=== PATIENT | female | born 1950 | race Two or more races ===

== ENCOUNTER 2018-10-09 17:59 | Emergency (ER) | payer MEDICARE, BC ==
[2018-10-09 18:22] VITALS: BP 168/89
--- NOTE | 2018-10-09 18:22 | UC ---
Respiratory Complaint HPI - HPI Summary HPI Summary: 68 yo female presents with cough and wheezing for the last 3 days. She tells me that she has a long standing history of smoking and has COPD. She has multiple bronchodilators and steroid inhalers that she uses daily. She also has an albuterol nebulizer that she has used twice today. She says that she was recently hospitalized for SOB and COPD where her O2% was <88% (She says her baseline is around 92%) - she was then placed on 2L O2 for use at bedtime. She has increased shortness of breath, intermittently productive cough, and wheezing. She is still smoking daily. Currently she denies fever, chills, sinus symptoms, sore throat, chest pain. 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 Onset/Duration: Gradual Onset Severity Initially: Mild Severity Currently: Mild Pain Intensity: 1 Pain Scale Used: 0-10 Numeric Character: Cough: Nonproductive - Allergies/Home Medications Allergies/Adverse Reactions: Allergies Allergy/AdvReac Type Severity Reaction Status Date / Time No Known Allergies Allergy Verified 10/09/18 18:23 Home Medications: Home Medications ARIPiprazole TAB* [Abilify TAB*] 2.5 mg PO DAILY 10/09/18 [History Confirmed ] Fluticasone Propionate [Flovent Diskus] 50 mcg IH PRN 10/09/18 [History] Levalbuterol Tartrate [Levalbuterol Tartrate Hfa] 45 mcg IN PRN 10/09/18 [ History] Nitroglycerin TAB 0.4 MG* 0.4 mg SL Q5M PRN 10/09/18 [History Confirmed 10/09/18 ] predniSONE TAB* [Deltasone 20 MG TAB*] 20 mg PO BID 10/09/18 [History Confirmed 10/09/18] PMH/Surg Hx/FS Hx/Imm Hx Endocrine History: Dyslipidemia Respiratory History: COPD Psychological History: Anxiety, Depression - Surgical History Surgical History: Yes Surgery Procedure, Year, and Place: plate to lt ankle, divided uterus-corrected , , bunionectomy - Family History Known Family History: Positive: Respiratory Disease - Social History Occupation: Retired Lives: With Family Alcohol Use: Daily Alcohol Amount: 1 glass wine Substance Use Type: None Smoking Status (MU): Heavy Every Day Tobacco Smoker Type: Cigarettes Review of Systems All Other Systems Reviewed And Are Negative: Yes Constitutional: Positive: Negative Skin: Positive: Negative Eyes: Positive: Negative ENT: Positive: Negative Respiratory: Positive: Shortness Of Breath, Cough Cardiovascular: Positive: Negative Gastrointestinal: Positive: Negative Neurological: Positive: Negative Psychological: Positive: Negative Physical Exam - Summary Physical Exam Summary: GENERAL: NAD. WDWN. No pain distress. SKIN: No rashes, sores, lesions, or open wounds. HEENT: Head: AT/NC Eyes: Conjunctiva clear without inflammation or discharge. Ears: Hearing grossly normal. TMs intact, no bulging, erythema, or edema. Nose: Nasal mucosa pink and moist. NTTP maxillary and frontal sinus. Throat: Posterior oropharynx without exudates, erythema, or tonsillar enlargement. Uvula midline. NECK: Supple. Nontender. No lymphadenopathy. CHEST: Barrel chest noted. Moderate wheezing throughout. Rales PAULO and RLL. No accessory muscle use. Breathing comfortably and in no distress. CV: RRR. Without m/r/g. Pulses intact. Cap refill <2seconds NEURO: Alert. PSYCH: Age appropriate behavior. Triage Information Reviewed: Yes Vital Signs: Initial Vital Signs Temp 98.7 F 10/09/18 18:16 Pulse 63 10/09/18 18:16 Resp 18 10/09/18 18:16 BP 168/89 10/09/18 18:16 Pulse Ox 91 10/09/18 18:16 Vital Signs Reviewed: Yes UC Diagnostic Evaluation - Laboratory O2 Sat by Pulse Oximetry: 91 Re-Evaluation - Re-Evaluation First Eval Re-Evaluation Time: 19:11 Change: Improved Comment: Improved s/p duoneb. Respiratory Course/Dx - Course Course Of Treatment: CXR: No radiologist reading after 1800, therefore wet read by myself is negative for PNA. In the clinic pt was given a duoneb treatment with good improvement of her breathing. Will dc her with doxycycline, atrovent nebulizer solution to be used with her albuterol solution, and prednisone 60mg for 3 days then 40mg for 3 days then 20mg for 3 days. Advised to go to the ED if her symptoms worsen. Pt voiced understanding and is in agreement with the plan. - Differential Dx/Diagnosis Provider Diagnoses: COPD exacerbation Discharge - Sign-Out/Discharge Documenting (check all that apply): Patient Departure All imaging exams completed and their final reports reviewed: No - Discharge Plan Condition: Stable Disposition: HOME Prescriptions: DOXYcycline CAP(*) [DOXYcycline 100MG CAP(*)] 100 mg PO BID #14 cap Ipratropium 0.5MG/2.5ML NEB* [Atrovent 0.5 MG NEB.XAVIER*] 0.5 mg INH Q6H PRN #30 neb.soln PRN Reason: Sob/Wheezing predniSONE TAB* [Deltasone 20 MG TAB*] 60 mg PO DAILY #18 tab Patient Education Materials: COPD (Chronic Obstructive Pulmonary Disease) (DC) Referrals: No Primary Care Phys,NOPCP [Primary Care Provider] - Additional Instructions: If you develop a fever, shortness of breath, chest pain, new or worsening symptoms - please call your PCP or go to the ED. Your blood pressure was high at todays visit. Please see your primary provider within 4 weeks for recheck and re-evaluation. - Billing Disposition and Condition Condition: STABLE Disposition: Home - Attestation Statements Provider Attestation: Per institutional requirements, I have reviewed the chart, however, I was not consulted specifically or made aware of this patient by the midlevel provider. I did not personally evaluate, interact with , or disposition this patient.
[2018-10-09] MEDS ORDERED: Albuterol/Ipratropium NEB.SOL* Albuterol 2.5 MG/Ipratropium 0.5 MG 3 ML INH ONE (18:44)
--- NOTE | 2018-10-10 08:09 | UC ---
- Progress Note Progress Note: RADIOLOGY READ REVIEWED: 1. Stigmata of chronic obstructive pulmonary disease and emphysema. Associated bilateral apical interstitial fibrosis. 2. 0.6 cm LEFT suprahilar nodular density may represent a blood vessel on end or a true pulmonary nodule. In absence of previous exams to document stability with none available on the [facility] further assessment with nonemergent contrast-enhanced CT would be suggested. PLS CALL PT AND ADVISE SHE NEEDS FOLLOW-UP IMAGING STATED ABOVE. FOLLOW-UP WITH PCP. IF NO PCP PLEASE REFER TO [facility]. Re-Evaluation - Re-Evaluation First Eval Re-Evaluation Time: 19:11 Change: Improved Comment: Improved s/p duoneb. Discharge - Sign-Out/Discharge Documenting (check all that apply): Post-Discharge Follow Up All imaging exams completed and their final reports reviewed: Yes - Discharge Plan Condition: Stable Disposition: HOME Prescriptions: DOXYcycline CAP(*) [DOXYcycline 100MG CAP(*)] 100 mg PO BID #14 cap Ipratropium 0.5MG/2.5ML NEB* [Atrovent 0.5 MG NEB.XAVIER*] 0.5 mg INH Q6H PRN #30 neb.soln PRN Reason: Sob/Wheezing predniSONE TAB* [Deltasone 20 MG TAB*] 60 mg PO DAILY #18 tab Patient Education Materials: COPD (Chronic Obstructive Pulmonary Disease) (DC) Referrals: No Primary Care Phys,NOPCP [Primary Care Provider] - Additional Instructions: If you develop a fever, shortness of breath, chest pain, new or worsening symptoms - please call your PCP or go to the ED. Your blood pressure was high at todays visit. Please see your primary provider within 4 weeks for recheck and re-evaluation. - Billing Disposition and Condition Condition: STABLE Disposition: Home
== END 2018-10-09 19:15 | disposition home or self-care (01) ==
LOC: UCEAST 17:59
DX: J44.1 Chronic obstructive pulmonary disease with (acute) exacerbation (principal); F32.9 Major depressive disorder, single episode, unspecified; F17.200 Nicotine dependence, unspecified, uncomplicated; Z79.899 Other long term (current) drug therapy
CPT/HCPCS: 71046; 99212; A9270-GY; G0463

== ENCOUNTER 2022-07-15 20:51 | Inpatient (IN) ==
[2022-07-15] MEDS ORDERED: Lactated Ringers 1000 ml BAG 1,000 ML IV ONE (21:40)
[2022-07-15 22:25] LABS: ABS Lymphocytes 1.2 10^3/ul (1.0-4.8); ABS Monocytes 1.5 10^3/ul (0-0.8); Eosinophil % 0.2 %; Hematocrit 40 % (35-47); Hemoglobin 13.4 g/dL (12.0-16.0); Lymphocyte % 8.2 %; Mean Corpuscular HGB Conc 33 g/dL (31-36); Mean Corpuscular Hemoglobin 31 pg (27-31); Mean Corpuscular Volume 93 fL (80-97); Mean Platelet Volume 7.7 fL (7.4-10.4); Platelet Count 182 10^3/uL (150-450); Red Blood Count 4.36 10^6 /uL (3.70-4.87); Red Cell Distribution Width 14 % (10-15); White Blood Count 14.8 10^3/uL (3.5-10.8)
[2022-07-15 22:31] LABS: Urine Appearance Cloudy; Urine Bilirubin Negative (Negative); Urine Color Straw; Urine Glucose Negative (Negative); Urine Ketones Negative (Negative); Urine Nitrite Positive (Negative); Urine Protein 1+ (30 mg/dL) (Negative); Urine Urobilinogen 0.2 (Negative) (Negative); Urine pH 7.5 (5.0-9.0)
[2022-07-15 22:32] LABS: Activated Partial Thrombo Time 30.3 seconds (26.0-38.0); INR 1.22 (0.89-1.11)
[2022-07-15 22:36] LABS: Urine Bacteria 2+ (Absent); Urine Red Blood Cell 3+(>10/hpf) (Absent); Urine White Blood Cell 3+(>20/hpf) (Absent)
[2022-07-15] MEDS ORDERED: cefTRIAXone 1 gm/50 mL D5W 1 GM/50 ML BAG IV ONE (22:41)
[2022-07-15 22:53] LABS: Albumin 3.8 g/dL (3.2-5.2); Albumin/Globulin Ratio 1.9 (1-3); C Reactive Protein 91.44 mg/L (<8.01); Calcium 8.5 mg/dL (8.6-10.3); Potassium 3.3 mmol/L (3.5-5.0); Total Bilirubin 1.1 mg/dL (0.2-1.0); Total Protein 5.8 g/dL (6.4-8.9); eGFR CKD-EPI 89.3 (>60)
[2022-07-15] MEDS ORDERED: Potassium Chlor 20 meq TAB.ER PO ONE (23:00)
[2022-07-15 23:44] LABS: High Sensitivity Troponin 1 Hr 108 pg/mL (<15)
[2022-07-16] MEDS ORDERED: Albuterol HFA INHALER 8 gm MDI INH PRN (02:41)
[2022-07-16] MEDS ORDERED: Vancomycin 1,000 MG in NS 0.9% 250 ml 250 ML IVPB ONE (04:29)
[2022-07-16] MEDS ORDERED: Lactated Ringers 1000 ml BAG 1,000 ML IV SCH (05:00)
[2022-07-16] MEDS ORDERED: Cefepime 1 GM in Dextrose 1 GM/50 ML BAG IV ONE (05:00)
[2022-07-16] MEDS ORDERED: Vancomycin per Pharmacy 1 EA NOTE FOLLOW UP SCH (05:00)
[2022-07-16 07:06] LABS: ABS Lymphocytes 1.7 10^3/ul (1.0-4.8); ABS Monocytes 1.4 10^3/ul (0-0.8); ABS Neutrophils 11.7 10^3/ul (1.5-7.7); Eosinophil % 0.1 %; Hematocrit 38 % (35-47); Hemoglobin 12.9 g/dL (12.0-16.0); Lymphocyte % 11.5 %; Mean Corpuscular HGB Conc 34 g/dL (31-36); Mean Corpuscular Hemoglobin 32 pg (27-31); Mean Corpuscular Volume 94 fL (80-97); Mean Platelet Volume 8.5 fL (7.4-10.4); Platelet Count 189 10^3/uL (150-450); Red Blood Count 4.03 10^6 /uL (3.70-4.87); Red Cell Distribution Width 14 % (10-15); White Blood Count 14.8 10^3/uL (3.5-10.8)
[2022-07-16 07:07] LABS: Albumin 3.6 g/dL (3.2-5.2); Albumin/Globulin Ratio 1.7 (1-3); Calcium 8.3 mg/dL (8.6-10.3); Globulin 2.1 g/dL (2-4); Potassium 3.9 mmol/L (3.5-5.0); Total Bilirubin 0.8 mg/dL (0.2-1.0); Total Protein 5.7 g/dL (6.4-8.9); eGFR CKD-EPI 85.1 (>60)
[2022-07-16] MEDS ORDERED: Levalbuterol HFA INHALER MDI INH PRN (07:47)
[2022-07-16] MEDS: Tiotropium Brom/Olodaterol MDI INH SCH ×2 (08:12→08:26)
[2022-07-16] MEDS ORDERED: Tiotropium Brom/Olodaterol MDI INH SCH (09:00)
[2022-07-16] MEDS ORDERED: cefTRIAXone 1 gm/50 mL D5W 1 GM/50 ML BAG IV ONE (10:10)
[2022-07-16] MEDS ORDERED: Acetaminop/Codeine 300mg/30mg TAB PO PRN (10:35)
[2022-07-16] MEDS ORDERED: Cefepime 1 GM in NS 0.9% 50 ML 50 ML IVPB SCH (17:00)
[2022-07-16] MEDS: Acetaminop/Codeine 300mg/30mg TAB PO PRN (17:05)
[2022-07-16] MEDS ORDERED: Iohexol 350 (CONTRAST) 500 ML MDV IV ONE (17:32)
[2022-07-16] MEDS ORDERED: Iodixanol (CONTRAST) 320 MG/ML 100 ML SDV IV ONE (17:35)
[2022-07-16] MEDS: Lidocaine PATCH 5% PATCH TRANSDERM SCH (17:37)
[2022-07-16] MEDS ORDERED: Budesonide/Formote 160/4.5(NF) MDI INH SCH (21:00)
[2022-07-16] MEDS ORDERED: cefTRIAXone 1 gm/50 mL D5W 1 GM/50 ML BAG IV SCH (21:00)
[2022-07-16] MEDS: Calcium/Vitamin D TAB 250/125 TAB PO SCH (21:33)
[2022-07-16] MEDS: cefTRIAXone 2 gm/50 mL D5W 2 GM/50 ML BAG IV SCH (21:34)
[2022-07-17] MEDS: Acetaminop/Codeine 300mg/30mg TAB PO PRN ×2 (00:14→14:15)
[2022-07-17 06:31] LABS: Hematocrit 35 % (35-47); Hemoglobin 12.2 g/dL (12.0-16.0); Mean Corpuscular HGB Conc 35 g/dL (31-36); Mean Corpuscular Hemoglobin 32 pg (27-31); Mean Corpuscular Volume 93 fL (80-97); Mean Platelet Volume 8.4 fL (7.4-10.4); Platelet Count 157 10^3/uL (150-450); Red Blood Count 3.78 10^6 /uL (3.70-4.87); Red Cell Distribution Width 14 % (10-15); White Blood Count 8.8 10^3/uL (3.5-10.8)
[2022-07-17 06:47] LABS: Calcium 7.5 mg/dL (8.6-10.3); Magnesium 1.9 mg/dL (1.9-2.7); Potassium 3.3 mmol/L (3.5-5.0); eGFR CKD-EPI 92.7 (>60)
[2022-07-17] MEDS: Tiotropium Brom/Olodaterol MDI INH SCH (07:44)
[2022-07-17] MEDS ORDERED: Magnesium Sulfate IV 1GM/100ML 1 GM/100 ML BAG IV ONE (07:59)
[2022-07-17] MEDS: Lidocaine PATCH 5% PATCH TRANSDERM SCH (08:26)
[2022-07-17] MEDS: KCL 20 MEQ/100 ML IVPREMIX 20 MEQ/100 ML BAG IV SCH ×2 (09:40→12:16)
[2022-07-17] MEDS: Calcium/Vitamin D TAB 250/125 TAB PO SCH (21:19)
[2022-07-17] MEDS: cefTRIAXone 2 gm/50 mL D5W 2 GM/50 ML BAG IV SCH (21:22)
[2022-07-18] MEDS: Acetaminop/Codeine 300mg/30mg TAB PO PRN (02:00)
[2022-07-18 06:15] LABS: Calcium 7.5 mg/dL (8.6-10.3); Magnesium 2.1 mg/dL (1.9-2.7); Potassium 3.6 mmol/L (3.5-5.0); eGFR CKD-EPI 83.7 (>60)
[2022-07-18] MEDS: Tiotropium Brom/Olodaterol MDI INH SCH (07:32)
[2022-07-18] MEDS: Lidocaine PATCH 5% PATCH TRANSDERM SCH (10:38)
[2022-07-18 15:22] VITALS: BP 143/87
== END 2022-07-18 17:15 | disposition home or self-care (01) | DRG 871 ==
LOC: ED 20:51 → SUATTDRO 07-16 01:18 → EDHOLD 07-16 01:18 → SSU 07-16 04:21
PROVIDERS: ADMIT Internal Medicine; ATTEND Internal Medicine